=== PATIENT | female | born 1990 | race Caucasian/White ===

== ENCOUNTER 2021-12-18 05:03 | Inpatient (IN) | payer MEDICAID, SELFPAY ==
[2021-12-18] VITALS (17 sets, daily range): BP systolic 105–129; BP diastolic 56–78; PULSE 53–85; RESP 15–16; O2SAT 98–100; BMI 32.1
[2021-12-18 05:32] LABS: Basophils # 0.1 10^3/uL (0.0-0.1); Basophils % 0.6 %; Eosinophils # 0.2 10^3/uL (0.0-0.8); Eosinophils % 1.7 %; Hematocrit 35.5 % (37.0-47.0); Hemoglobin 11.9 g/dL (11.5-15.3); Lymphocytes # 2.2 10^3/uL (0.8-4.8); Lymphocytes % 22.8 %; Mean Corpuscular HGB Conc 33.5 g/dL (30.0-36.0); Mean Corpuscular Hemoglobin 30.8 pg (28.0-34.0); Mean Platelet Volume 10.9 fL (7.4-10.4); Monocytes # 0.7 10^3/uL (0.2-0.9); Neutrophils # 6.44 10^3/uL (1.8-7.7); Neutrophils % 67.2 %; Nucleated Red Blood Cells % 0 %; Platelet Count 253 10^3/cmm (130-400); Red Blood Count 3.86 10^6/uL (4.1-5.3); Red Cell Distribution Width 13.1 % (12.1-15.1); White Blood Count 9.6 10^3/uL (4.0-10.0)
[2021-12-18] MEDS: lactated ringers 1,000 ML 999 ML IV ×2 (05:37→06:42)
[2021-12-18] MEDS: metoclopramide 5 mg/mL SDV 2 mL 10 MG IVP (06:41)
[2021-12-18] MEDS: famotidine 20 mg/2 mL INJ IVP (06:41)
[2021-12-18] MEDS: citric acid-sodium citrate 30 mL UDC PO (06:41)
[2021-12-18] MEDS: ceFAZolin 2,000 MG in sodium chloride 0.9% (plus) 50 ML 100 MG IV (06:41)
--- NOTE | 2021-12-18 06:50 | P.HP_ITS ---
Providers/Chief Complaint Admitting Physician: Grover Segura MD Chief Complaint: C Section HPI COMMUNITY OUTREACH ADVOCATE History of Present Illness Lilli Hanna is a 31 year old female Present Details : 4 Para: 3 care: good care Ultrasounds: normal 1st trimester US and normal mid trimester US Obstetrical complications: none Medical complications OB: none Labs Blood type OB HPI: B (+) positive Rubella: Immune RPR: Negative GBS: Negative HBsAG: Negative Specific History Indications for Section: Repeat Review of Systems General: Reports: 10 or more systems reviewed and unremarkable except in HPI and below Medications/Allergies Home Medications Medication Instructions Recorded Confirmed Last Taken Type prenat.vits,ricardo,okr-assg-sihkn 1 tab PO DAILY 12/18/21 12/18/21 12/17/21 18:00 History Allergies Allergy/AdvReac Type Severity Reaction Status Date / Time No Known Allergies Allergy Verified 12/18/21 05:19 PFS COMMUNITY OUTREACH ADVOCATE Sexual History: Are you sexually active?: Yes Hx Sexually Transmitted Diseases: No Have you ever tested positive for HIV?: No Contraception: control method: None Exercise: What type of physical activity do you participate in?: none Physical activity functional status: independent ambulation and normal ROM and activity Vitals/I&O/Wt Last Vital Signs Pulse 57 L 12/18/21 10:11 Resp 16 12/18/21 05:19 BP 117/66 12/18/21 10:11 O2 Del Method 12/18/21 05:35 12/17/21 12/18/21 12/18/21 22:59 06:59 14:59 Intake Total 1000 / 1000 50 / 50 Balance 1000 / 1000 50 / 50 Weight last 48 hrs Weight 84.822 kg Physical Exam Const: COMMON NORMALS: no acute distress and patient oriented x3 HENMT: COMMON NORMALS: normocephalic and moist oral mucous membranes Eye: COMMON NORMALS: Equal, round and reactive pupils present and no scleral icterus Neck/C-Spine: COMMON NORMALS: supple GENERAL: Yes normal visual inspection Chest: COMMONS NORMALS: normal inspection of the chest Resp: COMMON NORMALS: normal respiratory effort and No retractions Cardio: COMMON NORMALS: no JVD, regular rate, regular rhythm and No murmurs present (Cardio) GI: COMMON NORMALS: Normal to inspection, nondistended, normoactive bowel sounds present and non-tender Extremity: COMMON NORMALS: normal to inspection and no pedal edema Neuro: COMMON NORMALS: patient oriented x3, moves all extremities, no focal motor deficits and no sensory deficits noted Psych: COMMON NORMALS: mental status grossly normal Skin: COMMON NORMALS: no rashes or lesions noted Data : 12/18/21 05:20 A&P Assessment and plan (1) 39 weeks gestation of : No concerns during . Plan for routine care. Status: Acute (2) History of 3 sections: Proceed with RLTCS with tubal ligation. discussed risks and benefits of surgery including damage to structures, bleeding, infection, and . Status: Acute Attestations Medical Necessity Statement*: Anticipate 48 hour stay. Coding Level of Care Code Acute Transplant Nurse for Chg Fwd Diagnoses 39 weeks gestation of Z3A.39 History of 3 sections Z98.891
--- NOTE | 2021-12-18 08:30 | PM.OP ---
Operative Report Date of procedure: December 18, 2021 Pre-op diagnosis: TIUP Post-op diagnosis: same Post-op findings: same as above, viable infant male Procedure done: RLTCS with tubal ligation Specimens removed/disposition: bilateral fallopian tube segments Surgeon: Dr. Michael Segura Obiee Obia Solution Architect: Dr. Jaycee Perez Estimated blood loss: 500 Complications: none Findings: Viable male Brief History: This is a 31 at 39w5d here for RLTCS Procedure: Patient was taken to the operating room where epidural anesthesia was found to be adequate. She was prepped and draped in the normal sterile fashion in a dorsal supine position with a leftward tilt. Skin incision was made with scalpel and carried out to the underlying layer of fascia which was in size in the midline. Facial incision was then extended laterally with Duran scissors bilaterally. The superior aspect of the fascial incision was grasped with Khoker clamps, elevated and dissected off the rectus muscles with mayos. The inferior aspect of the fascial incision was grasped with Khokers and in likewise manner was elevated and dissected off with mayos. The peritoneum was then entered digitally and extended with good visualization of the bladder. The bladder blade was then inserted, vesicouterine peritoneum was identified, grasped with pickups and entered sharply with metzenbaum scissors.? The bladder flap was then created digitally and bladder blade reinserted. Uterine incision was created with a transverse fashion in the lower uterine segment with a scalpel and extended digitally. Amniotic SAC was ruptured with Allis clamp. Clear fluid was noted. Infants had delivered atraumatically, nose and mouth suctioned with bulb, cord clamped and cut and handed off to awaiting nursing staff. The placenta was then expressed and uterus was exteriorized from the abdomen and cleared of all clots and debris. Uterine incision was then repaired in a running lock fashion with? 0 vicryl. A second suture of the same was then used to imbricate the incision. Excellent hemostasis was noted. The left fallopian tube was then grassed with babcocks and tube segment was ligated with silk ties. Segment was excised with metzenbaum scissors and remaining tube sections were then cauterized. The same procedure was performed on the right fallopian tube. The uterus was then returned to the abdomen, gutters cleared of all clots and debris. The peritoneum was then closed in running fashion with 0 vicryl. The fascia was then closed with 0- vicryl in a running fashion. The skin was then closed with vicryl on Faisal needle. Incision then was? reinforced with steri strips in pressure dressing was applied. Sponge, lab, and needle count was correct times 2. 2 grams of Ancef were given prior to the procedure. Patient was taken to recovery in stable condition.
[2021-12-18] MEDS: dextrose 5%-lactated ringers 1,000 ML 125 ML IV (09:30)
[2021-12-18] MEDS: ondansetron 2 mg/ML SDV 2 mL 4 MG IVP ×2 (12:15→17:31)
[2021-12-18] MEDS: ketorolac 30 mg/mL INJ IVP ×2 (13:45→19:32)
--- NOTE | 2021-12-18 16:00 | PC.NURSE ---
Patient moved to chair with standby assist. Tolerates activity well. RAJ RN
[2021-12-18] MEDS: sodium chloride 0.9% 500 ML 999 ML IV (17:00)
--- NOTE | 2021-12-18 17:00 | PC.NURSE ---
Patient up to ambulate hallways x 2. Tolerates activity well. AR RN
[2021-12-18] MEDS: docusate sodium 100 mg Capsule PO (17:31)
--- NOTE | 2021-12-18 17:38 | PC.NURSE ---
500 ml bolus of NS initiated at this time per protocol. RAJ RN
--- NOTE | 2021-12-18 19:16 | PC.NURSE ---
Patient reported to RN that she has passed gas. RAJ RN
[2021-12-18 20:43] LABS: Hematocrit 29.7 % (37.0-47.0); Hemoglobin 9.6 g/dL (11.5-15.3); Mean Corpuscular HGB Conc 32.3 g/dL (30.0-36.0); Mean Corpuscular Hemoglobin 30.4 pg (28.0-34.0); Mean Platelet Volume 11.2 fL (7.4-10.4); Platelet Count 220 10^3/cmm (130-400); Red Blood Count 3.16 10^6/uL (4.1-5.3); Red Cell Distribution Width 13.1 % (12.1-15.1); White Blood Count 12.5 10^3/uL (4.0-10.0)
[2021-12-19] MEDS: ketorolac 30 mg/mL INJ IVP (01:22)
[2021-12-19 03:30] VITALS: BP 95/56; PULSE 69; RESP 16; O2SAT 99
--- NOTE | 2021-12-19 07:30 | PM.OBGYPN ---
HUMAN RESOURCES COMPENSATION ANALYST Subjective Subjective: Interval history: The patient is doing well. Patient is ambulating and urinating without difficulty. Pain is controlled. Lochia is appropriate. Labor: Monitor Mode: External Contraction Pattern: Absent Status: Category I Vitals/I&O/Wt Last Vital Signs Pulse 69 12/19/21 03:30 Resp 16 12/19/21 03:30 BP 95/56 12/19/21 03:30 Pulse Ox 99 12/19/21 03:30 O2 Del Method 12/19/21 03:30 12/18/21 12/19/21 12/19/21 22:59 06:59 14:59 Output Total 320 / 620 1150 / 1770 Balance -320 / -570 -1150 / -1720 Weight last 48 hrs Weight 84.822 kg Physical Exam Const: COMMON NORMALS: no acute distress, patient oriented x3 and alert Chest: COMMONS NORMALS: normal inspection of the chest Resp: COMMON NORMALS: normal respiratory effort Cardio: COMMON NORMALS: regular rate and regular rhythm RATE: regular rate RHYTHM: regular rhythm GI: COMMON NORMALS: Normal to inspection, nondistended, normoactive bowel sounds present and Soft to palpation PALPATION: Yes Soft to palpation Neuro: COMMON NORMALS: patient oriented x3 SENSORIUM/ORIENTATION: Yes alert Psych: COMMON NORMALS: mental status grossly normal Skin: COMMON NORMALS: no rashes or lesions noted GENERAL SKIN EXAM: no rashes or lesions noted OTHER: wound intact without drainage Urinary Catheter Management: Mcmillan: Cath Placed During This Visit: yes, but has since been removed by the nurse Reason for Continuing Indwelling Catheter: Decision to DC Catheter Urinary Catheter Date of Insertion: 12/18/21 Urinary Catheter Time of Insertion: 07:00 Date Urinary Catheter Removed: 12/19/21 Time Urinary Catheter Discontinued: 05:30 Data : 12/18/21 20:20 A&P Assessment and plan (1) care following delivery: Continue routine post care Status: Acute Attestations Medical Necessity Statement*: anticipate discharge tomorrow. Coding Level of Care Code Acute Skating Carhop for Chg Fwd Diagnoses care following delivery Z39.2
[2021-12-19] MEDS: prenatal vitamin Capsule 1 CAP PO (09:11)
[2021-12-19] MEDS: ibuprofen 800 mg tablet PO ×3 (09:11→23:17)
[2021-12-19] MEDS: ferrous sulfate EC 325 mg Tablet PO ×2 (09:11→16:54)
[2021-12-19] MEDS: docusate sodium 100 mg Capsule PO ×2 (09:11→16:54)
[2021-12-19] MEDS: HYDROcodone-acetaminophen 5-325 mg Tablet PO ×2 (11:10→16:54)
[2021-12-19 16:32] VITALS: BP 107/65; PULSE 65; RESP 17; TEMP 36.8; O2SAT 99
[2021-12-19 22:00] VITALS: BP 121/70; PULSE 66; RESP 18; TEMP 36.7; O2SAT 98
[2021-12-20 04:50] VITALS: BP 129/80; PULSE 67; RESP 18; TEMP 36.7
[2021-12-20] MEDS: HYDROcodone-acetaminophen 5-325 mg Tablet PO ×2 (05:10→09:38)
[2021-12-20] MEDS: prenatal vitamin Capsule 1 CAP PO (08:14)
[2021-12-20] MEDS: ferrous sulfate EC 325 mg Tablet PO (08:15)
[2021-12-20] MEDS: ibuprofen 800 mg tablet PO (08:15)
[2021-12-20] MEDS: docusate sodium 100 mg Capsule PO (08:15)
--- NOTE | 2021-12-20 09:33 | P.DS_ITS ---
Discharge Providers WORKERS COMPENSATION CLAIMS ADJUSTER Date of Admission: 12/18/21 05:03 Date of Discharge: 12/20/21 Attending Provider at Admission: Grover Segura MD Attending Provider at Discharge: Grover Segura MD Diagnoses at Discharge Discharge Diagnosis (1) care following delivery: Status: Acute (2) delivery delivered: Status: Acute Reason for Visit Reason for Visit: C Section Brief History: This is a 31 G$P$ that presented at 39w5d for RLTCS with tubal ligation. Hospital Course Hospital Course The patient underwent RLTCS with tubal ligation without any complication. Post care was unremarkable except for temporary nausea after delivery. This improved and her pain was controlled well with oral medications. The patient was able to ambulate and urinate without issue. No wound concerns. Information Peripartum Data: Delivery Method: complications: none Physical Exam Const: COMMON NORMALS: no acute distress, patient oriented x3, healthy appearing and alert Chest: COMMONS NORMALS: normal inspection of the chest Resp: COMMON NORMALS: normal respiratory effort and clear to auscultation bilaterally AUSCULTATION: clear to auscultation bilaterally Cardio: COMMON NORMALS: regular rate and regular rhythm RATE: regular rate RHYTHM: regular rhythm GI: COMMON NORMALS: Soft to palpation and non-tender PALPATION: Yes Soft to palpation Neuro: COMMON NORMALS: patient oriented x3 SENSORIUM/ORIENTATION: Yes alert Skin: NARRATIVE SKIN EXAM: Incision CDI Urinary Catheter Management: Mcmillan: Cath Placed During This Visit: yes, but has since been removed by the nurse Reason for Continuing Indwelling Catheter: Decision to DC Catheter Urinary Catheter Date of Insertion: 12/18/21 Urinary Catheter Time of Insertion: 07:00 Date Urinary Catheter Removed: 12/19/21 Time Urinary Catheter Discontinued: 05:30 History History History 4 Term 4 0 Miscarriages/Ectopic 0 Living Children 4 Discharge Data Studies Completed and Pending Pending at discharge Category Date Time Status Pathology: Surgical [PTH] Routine Pth 12/18/21 08:49 Received Laboratory Results WBC 12.5 10^3/uL (4.0-10.0) H 12/18/21 20:20 RBC 3.16 10^6/uL (4.1-5.3) L 12/18/21 20:20 Hgb 9.6 g/dL (11.5-15.3) L 12/18/21 20:20 Hct 29.7 % (37.0-47.0) L 12/18/21 20:20 MCV 94.0 fl (81-99) 12/18/21 20:20 MCH 30.4 pg (28.0-34.0) 12/18/21 20:20 MCHC 32.3 g/dL (30.0-36.0) 12/18/21 20:20 RDW 13.1 % (12.1-15.1) 12/18/21 20:20 Plt Count 220 10^3/cmm (130-400) 12/18/21 20:20 MPV 11.2 fL (7.4-10.4) H 12/18/21 20:20 Neut % (Auto) 67.2 % 12/18/21 05:20 Lymph % (Auto) 22.8 % 12/18/21 05:20 [place] % (Auto) 7.0 % 12/18/21 05:20 Eos % (Auto) 1.7 % 12/18/21 05:20 Baso % (Auto) 0.6 % 12/18/21 05:20 Neut # (Auto) 6.44 10^3/uL (1.8-7.7) 12/18/21 05:20 Lymph # (Auto) 2.2 10^3/uL (0.8-4.8) 12/18/21 05:20 [place] # (Auto) 0.7 10^3/uL (0.2-0.9) 12/18/21 05:20 Eos # (Auto) 0.2 10^3/uL (0.0-0.8) 12/18/21 05:20 Baso # (Auto) 0.1 10^3/uL (0.0-0.1) 12/18/21 05:20 Nucleated RBC % (auto) 0 % 12/18/21 05:20 Nucleated RBCs # 0.0 /100WBC 12/18/21 05:20 Blood Type B Positive 12/18/21 05:20 Rho(D) Type Positive 12/18/21 05:20 Antibody Screen Negative 12/18/21 05:20 Vitals Last Vital Signs Temp 98.1 F 12/20/21 04:50 Pulse 67 12/20/21 04:50 Resp 18 12/20/21 04:50 BP 129/80 12/20/21 04:50 Pulse Ox 98 12/19/21 22:00 O2 Del Method 12/19/21 22:00 Discharge Plan Discharge Patient Disposition: Home Prescriptions: New hydrocodone-acetaminophen 5-325 mg Tablet 1 - 2 tab PO Q4H PRN (Reason: Moderate To Severe Pain) Qty: 20 0RF Continued Vitamin Tablet 1 tab PO DAILY Discharge Orders: Discharge Order (Routine); Ordered 12/20/21 Ordered By: Grover Segura Discharge Diet: Advance as tolerated and Usual diet Discharge Activity: Limit activity as instructed Patient Instructions: Opioid Safety Discharge Attestations WORKERS COMPENSATION CLAIMS ADJUSTER Time Spent in Discharge Care*: less than 30 min Specific Discharge Activities: Specific discharge activities: educating patient Coding Level of Care Code Acute Assistant Sales Director for Chg Fwd Diagnoses care following delivery Z39.2 delivery delivered O82
[2021-12-20 12:50] VITALS: BP 132/71; PULSE 76; RESP 16; TEMP 36.4
== END 2021-12-20 13:05 | disposition home or self-care (01) | DRG 785 ==
PROVIDERS: Admitting Provider Family Medicine; Visit Provider Family Medicine
DX: O34.211 Maternal care for low transverse scar from previous cesarean delivery (principal); O99.62 Diseases of the digestive system complicating childbirth; K21.9 Gastro-esophageal reflux disease without esophagitis; Z3A.39 39 weeks gestation of pregnancy; Z37.0 Single live birth
CPT/HCPCS: 12345; 36415; 51702; 58611; 59025; 59409; 85025; 85027; 86850; 86900; 88302; J1885; J2274; J2370; J2405; J2765; J3490; J7040